=== PATIENT | male | born 1935 | race Caucasian/White ===

== ENCOUNTER 2016-11-04 17:13 | Emergency (ER) | payer MEDICARE, BC ==
--- NOTE | 2016-11-14 01:09 | ER ---
ADMIT: 11/04/2016 RM/LOC: ER [facility] MR#: [id number] [address] [id number] TAMMY AUGUSTIN [address] [place] [address] Emergency Room Report SEX: M AGE: 81 : 1935 DATE: 11/04/2016 HISTORY OF PRESENT ILLNESS: The patient is an 81-year-old male, presents to the emergency room with a cut in his left forearm. He said the wind blew the trunk down into his arm as he was reaching and putting some groceries in the trunk of the car. His vitals are within normal limits. He has a history of GERD, BPH, COPD, hyperlipidemia, CABG bypass, and hernia. He is allergic to sulfa and codeine. The area has been repaired. It was about 5 cm in length. Then, the Steri-Strips were applied to the area, good seal obtained. CLINICAL IMPRESSION: Laceration to the left forearm. Instructions were given. Followup. Discharged to the care of Dr. Campos. WARREN Agarwal / Alessandro Lee MD / fredis JOB #: [id number] CC: Alessandro Lee MD, Attending Physician UNKNOWN, Family Physician
== END 2016-11-04 18:22 | disposition home or self-care (01) ==
LOC: ER 17:13
DX: S51.812A Laceration without foreign body of left forearm, initial encounter (principal); Z23 Encounter for immunization; K21.9 Gastro-esophageal reflux disease without esophagitis; J44.9 Chronic obstructive pulmonary disease, unspecified; E78.5 Hyperlipidemia, unspecified; Z88.2 Allergy status to sulfonamides; Z88.5 Allergy status to narcotic agent; W22.8XXA Striking against or struck by other objects, initial encounter

== ENCOUNTER → 2016-11-17 | Outpatient (CLI) | payer MEDICARE, BC ==
--- NOTE | ~2016-11-17 | CST ---
Cardiac Perfusion Imaging Demographics Patient Name DEMETRIA Mishra Gender Male Patient Number [id number] Race Visit Number [id number] Ethnicity [employer] ID Room Number Accession Number [id number] Height 67 inches Date of 1935 Weight 223 pounds Age 81 year(s) BSA 2.12 m Referring Physician Andres Gardiner MD BMI 34.93 kg/m Interpreting Physician Umbarger Date of study 11/17/2016 Radiology Juan Olson M.D. Supervising /[id number] Andres Gardiner MD NM Technologist Trena Mart Ordering Physician Andres Gardiner MD Stress Hortencia Avina instrument technician helper Stress ECG Reading Andres Gardiner MD Nurse [facility] Physician Lisbet Cagle The procedure was explained in detail to the patient. Risks, complications and alternative treatments were reviewed. Written consent was obtained. Medications Reviewed with Patient prior to Procedure. Procedure Admit Source:Other. Procedure Type: Nuclear Stress Test:Pharmacological, Lexiscan, Cardiac Study SF Procedure Start time: 11/17/2016 07:15 Indications: Chest pain. Risk Factors The patient risk factors include:prior CABG;former tobacco use, treated hypercholesterolemia, treated hypertension, chronic lung disease, prior heart failure and ( years not smokin). Conclusions Summary Perfusion Images: The overall quality of the study is good. Left ventricular cavity is noted to be normal on the stress and rest studies. There is no evidence of abnormal lung activity. The right ventricle is not visualized and cannot be assessed. Stress SPECT images demonstrate homogenous tracer distribution throughout the myocardium. Rest SPECT images demonstrate homogenous tracer distribution throughout the myocardium. Gated SPECT imaging reveals normal myocardial thickening and wall motion. The left ventricular ejection fraction was calculated to be 58%. Impression 1. Normal myocardial perfusion. 2. Normal left ventricular systolic function with an ejection fraction of 58 %. Stress Protocols Resting ECG Indeterminate ECG due to baseline abnormalities. Stress Protocol:Pharmacologic - Lexiscan Predicted HR: 139 bpm Test duration: 06:00 min Reason for termination:Infusion complete ECG Findings Normal sinus rhythm. Complications Procedure complication: None. Stress Interpretation Appropriate hemodynamic response to Lexiscan. No significant ST-T wave changes with Lexiscan. ECG portion is negative for ischemia by diagnostic criteria. Imaging Results Summed scores - Summed stress score: 5 - Summed rest score: 2 - Summed difference score: 3 Stress ejection Ejection fraction:58 % EDV :100 ml ESV :42 ml Stroke volume :58 ml LV mass :121 gr Imaging Protocols Rest Stress Isotope:Tc99m Myoview IV Isotope: Tc99m Myoview IV Isotope dose:10.9 mCi Isotope dose:31.1 mCi Date:11/17/2016 06:30 Date:11/17/2016 07:15 Technique: SPECT Technique: Gated Supine SPECT Supine Scan Time:30 minutes post injection Scan Time:45-60 minutes post injection Procedure Medications - Regadenoson (Lexiscan) 0.4 mg IV over 10-15 sec. I.V. 0.4 mg. Medications administered per verbal order and read back to physician prior to administration. Medical History Admission Data Admission date: 11/17/2016 Admission Time: 05:49 Hospital Status: Outpatient. Signatures
== END | disposition home or self-care (01) ==
LOC: CARD 05:49
DX: R07.9 Chest pain, unspecified (principal)